=== PATIENT | male | born 1980 | race African-American/Black ===

== ENCOUNTER 2017-03-25 13:20 | Emergency (ER) | payer OTHER ==
[~2017-03-25] VITALS: Ht 172.7 cm; Wt 74.8 kg
[2017-03-25 13:21] VITALS: BP 143/91
[2017-03-25] MEDS ORDERED: BACTRIM 400-801 EACH PO (13:32)
[2017-03-25] MEDS ORDERED: KEFLEX250 MG PO (13:33)
[2017-03-25] MEDS ORDERED: PREDNISONE 10 M10 MG PO (13:33)
[2017-03-25] MEDS ORDERED: NORCO 5-325 TA1 EACH PO (14:04)
== END 2017-03-25 14:15 | disposition home or self-care (01) ==
LOC: ER 13:20
DX: S20.462A Insect bite (nonvenomous) of left back wall of thorax, initial encounter (principal); L03.312 Cellulitis of back [any part except buttock and flank]; W57.XXXA Bitten or stung by nonvenomous insect and other nonvenomous arthropods, initial encounter; Y93.89 Activity, other specified; Y92.89 Other specified places as the place of occurrence of the external cause; Y99.9 Unspecified external cause status

== ENCOUNTER → 2017-03-26 | Outpatient (CLI) | payer BC, OTHER ==
[~2017-03-26] MED LIST: BACTRIM 400-801 EACH PO; KEFLEX250 MG PO; NORCO 5-325 TA1 EACH PO; PREDNISONE 10 M10 MG PO
== END ==
LOC: HYPER 03-25 14:38
DX: S20.469A Insect bite (nonvenomous) of unspecified back wall of thorax, initial encounter (principal); L03.312 Cellulitis of back [any part except buttock and flank]; W57.XXXA Bitten or stung by nonvenomous insect and other nonvenomous arthropods, initial encounter; Y93.89 Activity, other specified; Y92.89 Other specified places as the place of occurrence of the external cause; Y99.8 Other external cause status

== ENCOUNTER → 2017-03-31 | Outpatient (CLI) | payer BC, OTHER | LOC: HYPER 07:38 | DX: S30.860D Insect bite (nonvenomous) of lower back and pelvis, subsequent encounter (principal); L03.312 Cellulitis of back [any part except buttock and flank]; W57.XXXD Bitten or stung by nonvenomous insect and other nonvenomous arthropods, subsequent encounter ==

== ENCOUNTER → 2017-04-09 | Outpatient (CLI) | payer BC, OTHER | LOC: HYPER 04-07 12:40 | DX: S20.469D Insect bite (nonvenomous) of unspecified back wall of thorax, subsequent encounter (principal); W57.XXXD Bitten or stung by nonvenomous insect and other nonvenomous arthropods, subsequent encounter ==

== ENCOUNTER → 2017-04-30 | Outpatient (CLI) | payer BC, OTHER | LOC: HYPER 07:12 | DX: S20.462D Insect bite (nonvenomous) of left back wall of thorax, subsequent encounter (principal); W57.XXXD Bitten or stung by nonvenomous insect and other nonvenomous arthropods, subsequent encounter ==

== ENCOUNTER → 2017-05-14 | Outpatient (CLI) | payer BC, OTHER | LOC: HYPER 07:13 | DX: S20.462D Insect bite (nonvenomous) of left back wall of thorax, subsequent encounter (principal); L03.312 Cellulitis of back [any part except buttock and flank]; W57.XXXD Bitten or stung by nonvenomous insect and other nonvenomous arthropods, subsequent encounter ==